=== PATIENT | male | born 1985 | race Caucasian/White ===

== ENCOUNTER 2019-04-19 01:30 | Emergency (ER) | payer OTHER ==
[~2019-04-19] VITALS: Ht 182.9 cm; Wt 84.0 kg
[2019-04-19 01:34] VITALS: Ht 182.9 cm; Wt 84.0 kg
[2019-04-19] MEDS ORDERED: LORAZEPAM 1 MG TAB PO ONE (02:00)
[2019-04-19] MEDS ORDERED: DIPHENHYDRAMINE 50 MG INJ IM ONE (03:00)
[2019-04-19] MEDS ORDERED: LORAZEPAM 2 MG INJ IM ONE (03:00)
[2019-04-19] MEDS ORDERED: HALOPERIDOL 5 MG INJ IM ONE (03:00)
[2019-04-19] MEDS ORDERED: POTASSIUM CHLORIDE (SR) 20 MEQ TAB PO STA (05:54)
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
[2019-04-19] MEDS ORDERED: POTASSIUM CHLORIDE 50 ML IVPB SCH (06:30)
[2019-04-19] MEDS ORDERED: CEPHALEXIN 500 MG CAP PO SCH (09:00)
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
[2019-04-20] MEDS ORDERED: NITR-58 PO (06:16)
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
[2019-04-20 06:30] VITALS: BP 110/68; PULSE 76; RESP 18
[2019-04-20] MEDS ORDERED: BEN25 PO (10:16)
== END 2019-04-20 06:30 | disposition home or self-care (01) ==
LOC: E/R 01:30
DX: F29 Unspecified psychosis not due to a substance or known physiological condition (principal); E87.6 Hypokalemia; D50.9 Iron deficiency anemia, unspecified; N30.01 Acute cystitis with hematuria; E86.0 Dehydration; F17.210 Nicotine dependence, cigarettes, uncomplicated; F15.10 Other stimulant abuse, uncomplicated; R40.2142 Coma scale, eyes open, spontaneous, at arrival to emergency department; R40.2252 Coma scale, best verbal response, oriented, at arrival to emergency department; R40.2362 Coma scale, best motor response, obeys commands, at arrival to emergency department
CPT/HCPCS: 36415; 80048; 80053; 80307; 81001; 85025; 96372; J1200; J1630; J2060; Z7502; Z7610; A4310; J3480

== ENCOUNTER 2019-04-20 10:03 | Emergency (ER) | payer OTHER ==
[~2019-04-20] VITALS: Wt 90.0 kg
[~2019-04-20 10:03] MED LIST: NITR-58 PO
[2019-04-20] MEDS ORDERED: DIPHENHYDRAMINE 50 MG INJ ONE (10:13)
[2019-04-20] MEDS ORDERED: METHYLPREDNISOLONE 125 MG INJ ONE (10:13)
[2019-04-20] MEDS ORDERED: BEN25 PO (10:16)
[2019-04-20] MEDS ORDERED: DIPHENHYDRAMINE 50 MG INJ IV ONE (10:30)
[2019-04-20] MEDS ORDERED: BENZTROPINE 2 MG INJ IV ONE (10:30)
[2019-04-20 11:07] VITALS: BP 105/76; PULSE 92; RESP 18
--- NOTE | 2019-04-20 12:44 | ERD ---
ER Documentation Chief Complaint Chief Complaint APPEARS HAVING DYSTONIC REACTION, HAD HALDOL EARLY THIS AM HPI Patient is a 33-year-old male with psychosis who presents with "tongue swelli ng". He was given Haldol recently as he was just here in the emergency department discharge. He is to keep sticking his tongue out. He has never had a reaction like this before. He has had no treatment as of yet. ROS All systems reviewed and are negative except as per history of present illness. Medications Home Meds Active Scripts Diphenhydramine Hcl* (Benadryl*) 25 Mg Cap, 25 MG PO Q6, #10 CAP Prov:BROOKE BLANK MD 04/20/19 Diphenhydramine Hcl* (Benadryl*) 25 Mg Cap, 25 MG PO Q6, #30 CAP Prov:BROOKE BLANK MD 04/20/19 Nitrofurantoin Monohyd Macrocr* (Macrobid*) 100 Mg Capsr, 100 MG PO BID for 7 Days, CAP Prov:BROOKE BLANK MD 04/20/19 Allergies Allergies: Coded Allergies: No Known Allergy (Unverified , 04/19/19) PMhx/Soc History of Surgery: No Anesthesia Reaction: No Hx Neurological Disorder: No Hx Respiratory Disorders: No Hx Cardiac Disorders: No Hx Psychiatric Problems: Yes (anxiety) Hx Miscellaneous Medical Probl: Yes (drug use) Hx Alcohol Use: Yes Hx Substance Use: Yes Hx Tobacco Use: No Smoking Status: Never smoker FmHx Family History: No diabetes Physical Exam Vitals Vital Signs Date Temp Pulse Resp B/P (MAP) Pulse Ox O2 O2 Flow FiO2 Time Delivery Rate 04/20/19 92 18 105/76 99 Room Air 11:07 (86) 04/20/19 98.0 111 18 121/65 99 10:05 (83) Physical Exam Const: Moderate distress Head: Atraumatic Eyes: Normal Conjunctiva ENT: No tongue swelling but keeps taking his tongue out of his mouth Neck: Full range of motion. No meningismus. Resp: Clear to auscultation bilaterally Cardio: Regular rate and rhythm, no murmurs Abd: Soft, non tender, non distended. Normal bowel sounds Skin: No petechiae or rashes Back: No midline or flank tenderness Ext: No cyanosis, or edema Neur: Awake and alert Psych: Normal Mood and Affect Results 24 hrs Current Medications Medications Dose Sig/Cory Start Time Status Last (Trade) Ordered Route PRN Stop Time Admin Dose Reason Admin 25 mg ONCE ONCE 04/20/19 DC 04/20/19 Diphenhydrami IV 10:30 10:26 ne HCl 04/20/19 10:31 (Benadryl) Benztropine 2 mg ONCE ONCE 04/20/19 DC 04/20/19 Mesylate IV 10:30 10:23 (Cogentin) 04/20/19 10:31 Procedures/MDM Patient is a 33-year-old male who presents with acute dystonic reaction. The patient was given Haldol and I believe this is the cause of his dystonic reaction. The patient was given Benadryl and Cogentin with good results though. The patient feels much better and will be discharged. I doubt angioedema or anaphylaxis. I believe his symptoms were all related to the Haldol. He can return for any worsening symptoms. He will be given a prescription for Benadryl if needed. Departure Diagnosis: Primary Impression: Dystonic drug reaction Condition: Fair Patient Instructions: Drug Reaction, Dystonic Referrals: Your doctor Additional Instructions: Call your primary care doctor TOMORROW for an appointment during the next 1 WEEK.Tell the national secretary that you were referred from this facility.See the doctor sooner or return here if your condition worsens before your appointment time. BROOKE BLANK MD April 20, 2019 12:44
== END 2019-04-20 11:01 | disposition home or self-care (01) ==
LOC: E/R 10:03
DX: G24.02 Drug induced acute dystonia (principal)
CPT/HCPCS: 96374; 96375; J0515; J1200; Z7502; J2930

== ENCOUNTER 2019-05-02 04:53 | Emergency (ER) | payer SELFPAY ==
[~2019-05-02 04:53] MED LIST changes: +BEN25 PO
--- NOTE | 2019-05-02 04:59 | ERD ---
ER Documentation Chief Complaint Chief Complaint ROS All systems reviewed and are negative except as per history of present illness. Procedures/MDM Please disregard this note GAURAV GERARD DO May 02, 2019 04:59
[2019-05-02] MEDS ORDERED: SULF1TAB31 PO (15:12)
== END 2019-05-02 05:47 | disposition left against medical advice (07) ==
LOC: E/R 04:53 → MERGE 04:53 → E/R 05:47
DX: Z53.21 Procedure and treatment not carried out due to patient leaving prior to being seen by health care provider (principal)

== ENCOUNTER 2019-05-02 04:55 | Emergency (ER) | payer OTHER ==
[~2019-05-02] VITALS: Ht 172.7 cm; Wt 75.0 kg
[2019-05-02 05:08] VITALS: Ht 172.7 cm; Wt 75.0 kg
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
[2019-05-02] MEDS ORDERED: POTASSIUM CHLORIDE (SR) 20 MEQ TAB PO STA (06:42)
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
--- NOTE | 2019-05-02 15:11 | EN ---
Date/Time of Note Date/Time of Note DATE: 05/02/19 TIME: 15:08 ER Progress Note Abscess Incision and Drainage with irrigation by me: Location: Left fifth digit Anesthesia: None Technique: Small, approximately 2 mm area of fluctuance. Incised and drained with 18-gauge needle Packing: [None] Complications: [Neurovascularly intact post procedure] I was called to evaluate small approximate 2 mm area of fluctuance over the left fifth digit, this was incised and drained successfully with an 18-gauge needle. No evidence of deep tissue abscess no evidence of flexor tenosynovitis. Patient's skin symptoms have stabilized while they have been evaluated in the department and are appropriate for outpatient care and work up. Exam and w/u not consistent w/ sepsis, deep space infection, or foreign body. LION UREÑA MD May 02, 2019 15:11
[2019-05-02] MEDS ORDERED: SULF1TAB31 PO (15:12)
[2019-05-02] MEDS ORDERED: TRIMETHOPRIM/SULFAMETHOX (DS) TAB PO ONE (15:30)
[2019-05-03] MEDS ORDERED: DIPHENHYDRAMINE 50 MG INJ IM ONE (02:30)
[2019-05-03] MEDS ORDERED: LORAZEPAM 2 MG INJ IM ONE (02:30)
[2019-05-03] MEDS ORDERED: HALOPERIDOL 5 MG INJ IM ONE (02:30)
--- NOTE | 2019-05-03 03:26 | EN ---
Date/Time of Note Date/Time of Note DATE: 05/03/19 TIME: 03:26 ER Progress Note Patient became acutely agitated during my shift and required chemical sedation with Haldol Ativan and Benadryl. No further events at this time. Still pending placement. Observation time is greater than 4 hours. KARTIK PERRY May 03, 2019 03:26
[2019-05-03 04:44] VITALS: BP 107/64; PULSE 79; RESP 16
[2019-05-04] MEDS ORDERED: CEPH-443 PO (14:26)
== END 2019-05-03 04:46 ==
LOC: E/R 04:55 → CANBEDREQ 05-03 03:17 → E/R 05-03 04:46
DX: F15.10 Other stimulant abuse, uncomplicated (principal)
CPT/HCPCS: 36415; 80053; 80307; 81001; 85025; 96372; J1200; J1630; J2060; Z7502; Z7610; A4310

== ENCOUNTER 2019-05-04 13:14 | Emergency (ER) | payer OTHER ==
[~2019-05-04] VITALS: Ht 177.8 cm; Wt 87.0 kg
[~2019-05-04 13:14] MED LIST changes: -BEN25 PO; -NITR-58 PO; +SULF1TAB31 PO
[2019-05-04 13:18] VITALS: Ht 177.8 cm; Wt 87.0 kg
--- NOTE | 2019-05-04 13:55 | ERD ---
ER Documentation Chief Complaint Chief Complaint HERE 05/02, THINKS HAVING REACTION TO HALDOL, ALSO HAS LEFT PINKY PAIN HPI Patient is a 33 years old male with PMHx of schizophrenia presenting to the clinic for mild agitation. Patient reports being given haldol IM and admits to having side effects on 05/12/2019. Patient was given haldol for acute agitation. Patient reports he is currently experiencing mood swings, finger twitching, and locked jaw. Patient denies fever, chills, night sweats, nausea, emesis, dizziness, and involuntary movements. Patient is complaining of left fifth distal phalanx infection that has been bothering for some time. Patient had drainage of her digit without any complication. Patient states that he never received any antibiotic medication to go home with. Patient is requesting antibiotic treatment. ROS All systems reviewed and are negative except as per history of present illness. Medications Home Meds Active Scripts Cephalexin* (Keflex*) 500 Mg Capsule, 500 MG PO QID for 5 Days, CAP Prov:ELIEL MOTT PA-C 05/04/19 Sulfamethoxazole/Trimethoprim* (Bactrim Ds* Tablet) 1 Each Tablet, 1 TAB PO BID for 7 Days, #14 TAB Prov:LION UREÑA MD 05/02/19 Discontinued Scripts Diphenhydramine Hcl* (Benadryl*) 25 Mg Cap, 25 MG PO Q6, #10 CAP Prov:BROOKE BLANK MD 04/20/19 Diphenhydramine Hcl* (Benadryl*) 25 Mg Cap, 25 MG PO Q6, #30 CAP Prov:BROOKE BLANK MD 04/20/19 Nitrofurantoin Monohyd Macrocr* (Macrobid*) 100 Mg Capsr, 100 MG PO BID for 7 Days, CAP Prov:BROOKE BLANK MD 04/20/19 Allergies Allergies: Coded Allergies: haloperidol (Verified Allergy, Unknown, 05/04/19) PMhx/Soc Medical and Surgical Hx: pt denies Surgical Hx History of Surgery: No Anesthesia Reaction: No Hx Neurological Disorder: No Hx Respiratory Disorders: No Hx Cardiac Disorders: No Hx Psychiatric Problems: Yes (anxiety, SCHIZOPHRENIA) Hx Miscellaneous Medical Probl: Yes (drug use) Hx Alcohol Use: Yes Hx Substance Use: Yes (METH) Hx Tobacco Use: No Smoking Status: Never smoker Physical Exam Vitals Vital Signs Date Temp Pulse Resp B/P (MAP) Pulse Ox O2 O2 Flow FiO2 Time Delivery Rate 05/04/19 97.8 81 18 122/76 99 Room Air 14:42 (91) 05/04/19 97.9 86 18 123/81 99 13:18 (95) Physical Exam Const: Patient looks mildly agitated and restlessness. Head: Atraumatic Eyes: Normal Conjunctiva, No spontaneous eye movement noted, no nystagmus. ENT: Normal External Ears, Nose and Mouth, Buccal mucosa wet. Neck: Full range of motion. No meningismus. Resp: Clear to auscultation bilaterally. Cardio: Regular rate and rhythm, no murmurs. Neur: Awake and alert Psych: Normal Mood and Affect Left 5th digit exam: Small 1cm mass located on distal phalanx without any induration, discharge, or pus drainage. No tenderness to palpation. Results 24 hrs Current Medications Medications Dose Sig/Cory Start Time Status Last (Trade) Ordered Route PRN Stop Time Admin Dose Reason Admin 25 mg ONCE ONCE 05/04/19 DC 05/04/19 Diphenhydrami IV 14:00 14:10 ne HCl 05/04/19 14:01 (Benadryl) Benztropine 2 mg ONCE ONCE 05/04/19 DC 05/04/19 Mesylate IV 14:00 14:11 (Cogentin) 05/04/19 14:01 Procedures/MDM Patient was seen and evaluated for mild dystonic drug reaction to haldol. Patient has no obvious signs of neuroleptic malignant syndrome, no signs of tongue swelling (patient did complain of tongue swelling during exam). Provider used 18" needle with drainage of fluid (no pus) of left 5th distal phalanx. Patient was given Benadryl and Cogentin IV with improvement. Patient is stable and ready for discharge. Patient will be given Keflex for his left distal phalanx mass as per patient's request. Patient was advised to F/U with PCP and psychiatrist. Departure Diagnosis: Primary Impression: Dystonic drug reaction Condition: Stable Patient Instructions: Drug Reaction, Dystonic Referrals: [facility] Additional Instructions: Patient advised to return to the ED immediately for new or worsening symptoms. Patient advised to follow up with primary care provider in the next 24-48 hours. Patient verbalized understanding and agrees with treatment plan and course of action. If patient has no primary care they may follow up with [facility] [address] [place] [address] or [facility] [address] [place] [address] or [facility] [address] [place] [address] ELIEL MOTT PA-C May 04, 2019 13:55 SINGH RODRIGUEZ MD May 04, 2019 15:35
[2019-05-04] MEDS ORDERED: DIPHENHYDRAMINE 50 MG INJ IV ONE (14:00)
[2019-05-04] MEDS ORDERED: BENZTROPINE 2 MG INJ IV ONE (14:00)
[2019-05-04] MEDS ORDERED: CEPH-443 PO (14:26)
[2019-05-04 14:42] VITALS: BP 122/76; PULSE 81; RESP 18
== END 2019-05-04 14:59 | disposition home or self-care (01) ==
LOC: FTE 13:14
DX: G24.02 Drug induced acute dystonia (principal)
CPT/HCPCS: 96374; 96375; J0515; J1200; Z7502

== ENCOUNTER 2019-06-14 00:51 | Emergency (ER) | payer OTHER ==
[~2019-06-14] VITALS: Ht 177.8 cm; Wt 86.9 kg
[~2019-06-14 00:51] MED LIST changes: +CEPH-443 PO
[2019-06-14 00:59] VITALS: Ht 177.8 cm; Wt 86.9 kg
[2019-06-14] MEDS ORDERED: LORAZEPAM 2 MG INJ IM ONE (01:30)
--- NOTE | 2019-06-14 01:38 | ERD ---
ER Documentation Chief Complaint Chief Complaint weakness, generalized body pain, palpitations. HPI 33-year-old man with history of methamphetamine abuse presents with anxiety, agitation, and auditory hallucinations for the last day after using methamphetamine. He denies suicidal homicidal ideation, no fevers or chills, no vomiting or diarrhea, no complaints of chest pain or shortness of breath. ROS All systems reviewed and are negative except as per history of present illness. Medications Home Meds Active Scripts Cephalexin* (Keflex*) 500 Mg Capsule, 500 MG PO QID for 5 Days, CAP Prov:ELIEL MOTT PA-C 05/04/19 Sulfamethoxazole/Trimethoprim* (Bactrim Ds* Tablet) 1 Each Tablet, 1 TAB PO BID for 7 Days, #14 TAB Prov:LION UREÑA MD 05/02/19 Allergies Allergies: Coded Allergies: haloperidol (Verified Allergy, Unknown, 06/14/19) PMhx/Soc History of anxiety, methamphetamine abuse Medical and Surgical Hx: pt denies Surgical Hx History of Surgery: No Anesthesia Reaction: No Hx Neurological Disorder: No Hx Respiratory Disorders: No Hx Cardiac Disorders: No Hx Psychiatric Problems: Yes (anxiety, SCHIZOPHRENIA) Hx Miscellaneous Medical Probl: Yes (drug use) Hx Alcohol Use: Yes Hx Substance Use: Yes (METH) Hx Tobacco Use: No Smoking Status: Never smoker FmHx Family History: No diabetes Physical Exam Vitals Vital Signs Date Temp Pulse Resp B/P (MAP) Pulse Ox O2 O2 Flow FiO2 Time Delivery Rate 06/14/19 99 16 103/63 99 Room Air 04:09 (76) 06/14/19 98.3 140 20 147/101 98 00:59 (116) Physical Exam GENERAL: Well-developed, well-nourished, anxious and agitated, afebrile NEURO: Alert and oriented 3, cranial nerves II through XII intact bilaterally, pupils equal round reactive to light, no focal deficits or facial asymmetry, sensation intact distally Strength 5/5 in upper and lower extremities bilaterally CARDIAC: Tachycardic and regular, no murmurs rubs or gallops LUNGS: Clear bilaterally no wheezing crackles or stridor PSYCH: Anxious and agitated Result Diagram: 06/14/19 0230 06/14/19 0230 Results 24 hrs Laboratory Tests Test 06/14/19 02:30 White Blood Count 8.7 10^3/ul Red Blood Count 6.46 10^6/ul Hemoglobin 12.2 g/dl Hematocrit 40.3 % Mean Corpuscular Volume 62.4 fl Mean Corpuscular Hemoglobin 18.9 pg Mean Corpuscular Hemoglobin Concent 30.3 g/dl Red Cell Distribution Width 17.1 % Platelet Count 243 10^3/UL Mean Platelet Volume 9.1 fl Immature Granulocytes % 0.200 % Neutrophils % 63.6 % Lymphocytes % 26.1 % Monocytes % 8.4 % Eosinophils % 1.2 % Basophils % 0.5 % Nucleated Red Blood Cells % 0.0 /100WBC Immature Granulocytes # 0.020 10^3/ul Neutrophils # 5.5 10^3/ul Lymphocytes # 2.3 10^3/ul Monocytes # 0.7 10^3/ul Eosinophils # 0.1 10^3/ul Basophils # 0.0 10^3/ul Nucleated Red Blood Cells # 0.0 10^3/ul Urine Color YELLOW Urine Clarity SLIGHTLY CLOUDY Urine pH 6.0 Urine Specific [place] 1.010 Urine Ketones TRACE mg/dL Urine Nitrite NEGATIVE mg/dL Urine Bilirubin NEGATIVE mg/dL Urine Urobilinogen NEGATIVE mg/dL Urine Leukocyte Esterase NEGATIVE Holly/ul Urine Microscopic RBC 0 /HPF Urine Microscopic WBC 12 /HPF Urine Bacteria FEW /HPF Urine Mucus FEW /HPF Urine Hemoglobin NEGATIVE mg/dL Urine Glucose NEGATIVE mg/dL Urine Total Protein NEGATIVE mg/dl Sodium Level 142 mmol/L Potassium Level 3.7 mmol/L Chloride Level 102 mmol/L Carbon Dioxide Level 30 mmol/L Anion Gap 10 Blood Urea Nitrogen 22 mg/dl Creatinine 1.00 mg/dl Est Glomerular Filtrat Rate mL/min > 60 mL/min Glucose Level 122 mg/dl Calcium Level 9.6 mg/dl Total Bilirubin 1.3 mg/dl Direct Bilirubin 0.00 mg/dl Indirect Bilirubin 1.3 mg/dl Aspartate Amino Transf (AST/SGOT) 467 IU/L Alanine Aminotransferase (ALT/SGPT) 166 IU/L Alkaline Phosphatase 62 IU/L Total Protein 8.0 g/dl Albumin 4.6 g/dl Globulin 3.40 g/dl Albumin/Globulin Ratio 1.35 Salicylates Level < 1.0 mg/dl Urine Opiates Screen Positive Acetaminophen Level < 10.0 ug/ml Urine Barbiturates Negative Urine Amphetamines Screen POSITIVE Urine Benzodiazepines Screen Positive Urine Cocaine Screen Negative Urine Cannabinoids Negative Ethyl Alcohol Level < 10.0 mg/dl Current Medications Medications Dose Sig/Cory Start Time Status Last (Trade) Ordered Route PRN Stop Time Admin Dose Reason Admin Lorazepam 2 mg ONCE ONCE 06/14/19 DC 06/14/19 (Ativan) IM 01:30 01:30 06/14/19 01:31 Sodium 1,000 ml @ Q1H STAT 06/14/19 DC 06/14/19 Chloride 1,000 mls/hr IV 02:14 02:46 06/14/19 03:13 Procedures/MDM patient was placed on monitoring specialist rhythm strip revealed a narrow complex tachycardia at 120 bpm with upright P and T waves. Patient was afebrile Administer lorazepam 2 mg IM x1 for acute anxiety and agitation. Patient's initial hypertension and tachycardia completely resolved and vital signs are normal, he has no suicidal homicidal ideation CBC and electrolytes were within normal limits, liver function tests were unr emarkable, drug screen positive for methamphetamines, ethanol level negative. Differential diagnoses considered, included but not limited to acute coronary syndrome, pulmonary embolism, aortic dissection, abdominal aortic aneurysm, sepsis, stroke, meningitis, encephalitis, pneumonia, appendicitis, cholecystitis, bowel obstruction, pyelonephritis, nephrolithiasis, cystitis, as well as metabolic, hematologic, and electrolyte abnormalities. As well as abscess, cellulitis, fractures, and dislocations. Patient feels much better at this time, and vital signs are normal, symptoms have improved. I did give strict instructions to return to the ED if symptoms continue or worsen, patient will otherwise follow-up with primary care physician. Patient understood instructions and agreed to plan. Disclaimer: Inadvertent spelling and grammatical errors are likely due to EHR/dictation software use and do not reflect on the overall quality of patient care. Also, please note that the electronic time recorded on this note does not necessarily reflect the actual time of the patient encounter. Departure Diagnosis: Primary Impression: Anxiety attack Additional Impression: Methamphetamine abuse Condition: Good LION SIMS MD Jun 14, 2019 01:38
[2019-06-14] MEDS ORDERED: SOD CHLORIDE 0.9% 1,000 ML IV STA (02:14)
[2019-06-14 04:09] VITALS: BP 103/63; PULSE 99; RESP 16
== END 2019-06-14 04:10 | disposition home or self-care (01) ==
LOC: E/R 00:51
DX: F41.9 Anxiety disorder, unspecified (principal); F15.10 Other stimulant abuse, uncomplicated; R40.2142 Coma scale, eyes open, spontaneous, at arrival to emergency department; R40.2362 Coma scale, best motor response, obeys commands, at arrival to emergency department; R40.2242 Coma scale, best verbal response, confused conversation, at arrival to emergency department
CPT/HCPCS: 36415; 80053; 80307; 81001; 85025; 96372; J2060; J7030; Z7502; 81003

== ENCOUNTER 2019-07-18 03:04 | Emergency (ER) | payer OTHER ==
[~2019-07-18] VITALS: Ht 177.8 cm; Wt 0.9 kg
[2019-07-18 03:11] VITALS: Ht 177.8 cm; Wt 0.9 kg
[2019-07-18] MEDS ORDERED: DIPHENHYDRAMINE 50 MG INJ IM ONE (04:00)
[2019-07-18] MEDS ORDERED: LORAZEPAM 2 MG INJ IM ONE (04:00)
[2019-07-18 06:35] VITALS: BP 111/70; PULSE 91; RESP 20
== END 2019-07-18 18:02 | disposition home or self-care (01) ==
LOC: E/R 03:04
DX: F23 Brief psychotic disorder (principal); F15.10 Other stimulant abuse, uncomplicated; R45.1 Restlessness and agitation; R45.6 Violent behavior; F22 Delusional disorders; R41.82 Altered mental status, unspecified; Z86.59 Personal history of other mental and behavioral disorders
CPT/HCPCS: 36415; 70450; 80053; 80307; 85025; 96372; J1200; J2060; Z7502

== ENCOUNTER 2019-07-26 05:52 | Inpatient (IN) | payer OTHER ==
[~2019-07-26] VITALS: Ht 180.3 cm; Wt 88.0 kg
[2019-07-26 08:15] VITALS: BP 111/66; PULSE 75; RESP 20
[2019-07-26] MEDS ORDERED: SOD CHLORIDE 0.9% 1,000 ML IV SCH (09:20)
[2019-07-26] MEDS: FAMOTIDINE 20 MG TAB PO SCH ×2 (09:30→10:09)
[2019-07-26] MEDS: DOCUSATE SODIUM 100 MG CAP PO SCH ×2 (09:30→10:09)
[2019-07-26] MEDS ORDERED: ACETAMINOPHEN 325 MG TAB PO PRN (09:30)
[2019-07-26] MEDS ORDERED: ONDANSETRON 4 MG INJ IV PRN (09:30)
[2019-07-26] MEDS ORDERED: HYDROCODONE/APAP (5/325) TAB PO PRN (09:30)
[2019-07-26 09:38] VITALS: Ht 180.3 cm; Wt 88.0 kg
[2019-07-26] MEDS ORDERED: LORAZEPAM 2 MG INJ IV PRN (12:30)
[2019-07-26] MEDS ORDERED: ZOLPIDEM 5 MG TAB PO PRN (21:00)
== END 2019-07-26 12:25 | disposition left against medical advice (07) | DRG 683 ==
LOC: PP2 07:55
PROVIDERS: ADMIT Internal Medicine; ATTEND Internal Medicine
DX: N17.9 Acute kidney failure, unspecified (principal); M62.82 Rhabdomyolysis; F15.90 Other stimulant use, unspecified, uncomplicated; F41.9 Anxiety disorder, unspecified; Z53.21 Procedure and treatment not carried out due to patient leaving prior to being seen by health care provider
CPT/HCPCS: 80053; 83690; 83735; 84100; 84443; 85025; J7030